=== PATIENT | male | born 1955 | race African-American/Black ===

== ENCOUNTER 2017-09-29 09:16 | Emergency (ER) | payer MEDICARE, MEDICAID ==
[~2017-09-29] VITALS: Ht 182.9 cm; Wt 87.0 kg
[2017-09-29 09:29] VITALS: BP 235/142
[2017-09-29] MEDS ORDERED: LABETALOL 5MG/ML SYR 20 MG/4 ML SYRINGE IV ONE (10:00)
== END 2017-09-29 09:53 | disposition left against medical advice (07) ==
LOC: ER 09:33
DX: I16.0 Hypertensive urgency (principal); I10 Essential (primary) hypertension; R42 Dizziness and giddiness; R30.0 Dysuria; R10.9 Unspecified abdominal pain; R39.15 Urgency of urination
CPT/HCPCS: 99281